=== PATIENT | female | born 1975 | race Caucasian/White ===

== ENCOUNTER 2022-12-31 07:36 | Emergency (ER) | payer OTHER ==
[2022-12-31 07:48] VITALS: BP 122/70; O2SAT 100
--- NOTE | 2022-12-31 07:49 | ED Physician Documentation ---
PD HPI UPPER EXT INJURY - Stated complaint Stated Complaint: LT FINGER PX - Chief complaint Chief Complaint: Trauma Ext - History obtained from History obtained from: Patient - History of Present Illness Location: Left, Finger (ring finger mainly but middle finger with some pain at DIP.) Type of injury: Twist (she got fingers pulled by lead rope as she was walking her horse. Twist type mechanism to fingers. Pain adn swelling last night into today.) Where injury occurred: Home Timing - onset: Yesterday Timing - details: Abrupt onset, Still present Improved by: Rest Worsened by: Moving, Palpating Associated symptoms: Swelling, Discolored (some bruising base of finger area today.). No: Weakness, Numbness Similar symptoms before: Has not had sx before Review of Systems Skin: denies: Abrasion (s), Laceration (s) Neurologic: denies: Focal weakness, Numbness PD PAST MEDICAL HISTORY - Past Medical History Past Medical History: Yes Cardiovascular: None Respiratory: None Neuro: None Endocrine/Autoimmune: None GI: None HEALTH EDUCATION DIRECTOR: None : None HEENT: None Psych: None Musculoskeletal: None Derm: None - Past Surgical History Past Surgical History: No - Present Medications Home Medications: Ambulatory Orders Medication Instructions Recorded Confirmed No Known Home Medications 12/31/22 12/31/22 - Allergies Allergies/Adverse Reactions: Allergies Allergy/AdvReac Type Severity Reaction Status Date / Time No Known Drug Allergies Allergy Verified 12/31/22 07:43 - Social History Does the pt smoke?: No Smoking Status: Never smoker Does the pt drink ETOH?: Yes Does the pt have substance abuse?: No - Immunizations Immunizations are current?: Yes PD ED PE NORMAL - Vitals Vital signs reviewed: Yes - General General: Alert and oriented X 3, No acute distress, Well developed/nourished - Derm Derm: Normal color, Warm and dry - Neuro Neuro: Alert and oriented X 3, No motor deficit (she is able to flex and extend, though painful, at ring and middle fingers. Ring finger with some swelling and bruising proximal to the DIP joint, with most tenderness at DIP. Normal sensation color,c ap refill at tip. Flex/extension at DIP capable but hurts for extension mostly. good color and capr), No sensory deficit Results - Vitals Vitals: Vital Signs - 24 hr 12/31/22 07:44 Temperature 37 C Heart Rate 74 Respiratory 16 Rate Blood Pressure 122/70 O2 Saturation 100 Oxygen O2 Source Room air - Rads (name of study) left fingers Relevant Findings:: Final report received, Discussed with rads, EMP independent interpretation of test (seems likely small fracture distal part of middle phalanxe. Will call provider to see about fracture as initial reading says no fractures, but I discussed with Rad afterward.) PD Medical Decision Making - ED course Complexity details: reviewed results (apparent fracture ring finger DIP joint area and is area of most tender. Discussed with Radiologist and will add amendment to report for possible fracture in the area. ), considered differential (has apparent small fracture at DIP area ring finger, which is area of most pain. ), d/w patient Departure - Departure Disposition: 01 Home, Self Care Clinical Impression: Fracture of phalanx of ring finger Qualifiers: Encounter type: initial encounter Fracture type: closed Phalanx: middle Fracture alignment: nondisplaced Laterality: left Qualified Code(s): S62.655A - Nondisplaced fracture of middle phalanx of left ring finger, initial encounter for closed fracture Condition: Stable Record reviewed to determine appropriate education?: Yes Instructions: ED Fx Finger Closed Follow-Up: Michelle Beltrán MD [Primary Care Provider] - [facility] [Provider Group] Comments: It does appear to be a fracture at the end of the middle phalanx of the ring finger as we looked at on your picture. This is in reasonable position at this point. Keep the finger splinted and no use of the fingers/full membership sales advisor of the hand etc. for 3 to 4 weeks for healing. Follow-up with your primary care or orthopedics in about 1-1/2 weeks to ensure it still in adequate position. Call Monday for an appointment. Ice elevate and rest it often today for swelling. Some anti-inflammatory such as ibuprofen or naproxen 2-3 times daily can be helpful. Add Tylenol if needed. Be nice to your hand/fingers so they heal in the right position. It is okay to have use of the thumb and index finger for light activity. Forms: PCP List Discharge Date/Time: 12/31/22 09:48
--- NOTE | 2022-12-31 09:15 | XRAY Report ---
PROCEDURE: Finger(s) LT INDICATIONS: ring finger injury yesterday TECHNIQUE: AP hand, 2 views of the fourth finger(s) acquired. COMPARISON: None. FINDINGS: Bones: No fractures or dislocations. No suspicious bony lesions. Mild degenerative changes are seen . Soft tissues: No suspicious soft tissue calcifications or masses. IMPRESSION: No acute bony abnormality. Reviewed by: Levi Malik MD on 12/31/2022 8:14 AM ELEAZAR Approved by: Levi Malik MD on 12/31/2022 8:14 AM [email or web address] Station ID: [id number]
== END 2022-12-31 09:48 | disposition home or self-care (01) ==
LOC: ED 07:36
DX: S62.655A Nondisplaced fracture of middle phalanx of left ring finger, initial encounter for closed fracture (principal); X50.1XXA Overexertion from prolonged static or awkward postures, initial encounter
CPT/HCPCS: 99283